=== PATIENT | male | born 1990 | race Caucasian/White ===

== ENCOUNTER 2021-03-19 07:03 | Emergency (ER) | payer OTHER ==
[2021-03-19 07:08] VITALS: TEMP 97.4
[2021-03-19] MEDS ORDERED: predniSONE 20 MG TAB PO STA (07:33)
[2021-03-19] MEDS ORDERED: KETOROLAC 15 MG/ML 1 ML VIAL IM STA (07:33)
--- NOTE | 2021-03-19 08:24 | XR ---
EXAM TYPE: LUMBAR SPINE X RAY SERIES COMPARISON: NONE HISTORY: Pain TECHNIQUE: 4 views are submitted. FINDINGS: Alignment is anatomic. The pedicles are intact. The transverse processes are intact. There is no s pondylolysis or spondylolisthesis. IMPRESSION: 1. No acute process.
[2021-03-19] MEDS ORDERED: HYDROmorphone 1 MG/ML 1 ML SYRINGE IM STA (08:38)
--- NOTE | 2021-03-19 08:51 | ED ---
Back Pain HPI - General Chief Complaint: Back Pain/Injury Stated Complaint: Back pain Source: patient Limitations: no limitations - History of Present Illness Initial Comments: 30-year-old male with no past buccal history presents emergency room with back pain. Patient states that he was working on a car 2 months ago and was in a bad position. Caused him to have significant sciatic pain for a couple of days. States the pain eventually went away on its own. The patient then woke up this morning with intense right-sided SI pain that went down into his right leg. He attempted to take some Motrin at home without relief. Additionally took a Naprosyn which states that it did help for a short period of time. He denies any weakness in his lower extremity's. No saddle anesthesia. No bowel or bl adder incontinence. No fevers. Denies IV drug use. He did have a fall 2 days ago where he fell on his tailbone however did not have this pain after the incident. Denies any additional injuries. No other alleviating, precipitating or modifying factors - Related Data Previous Rx's Medication Instructions Recorded HYDROcodone/APAP 5-325MG [[place] 1 tab PO Q4HR PRN 3 Days #18 tab 03/19/21 5-325] predniSONE [Deltasone] 20 mg PO BID #10 tab 03/19/21 Allergies Allergy/AdvReac Type Severity Reaction Status Date / Time No Known Allergies Allergy Verified 03/19/21 07:09 Review of Systems ROS Statement: Those systems with pertinent positive or pertinent negative responses have been documented in the HPI. ROS Other: All systems not noted in ROS Statement are negative. Past Medical History Additional Past Medical History / Comment(s): kidney stones History of Any Multi-Drug Resistant Organisms: None Reported Past Surgical History: Ear Surgery, Orthopedic Surgery Additional Past Surgical History / Comment(s): rt hand Past Psychological History: No Psychological Hx Reported Smoking Status: Current every day smoker Past Alcohol Use History: Occasional Past Drug Use History: Marijuana General Exam Limitations: no limitations Course Vital Signs 03/19/21 07:05 Temperature 97.4 F L Pulse Rate 82 Respiratory 16 Rate Blood Pressure 138/93 O2 Sat by Pulse 97 Oximetry Medical Decision Making - Medical Decision Making Upon arrival patient is placed in room 9. A thorough history and physical exam was performed. Patient is neurovascularly intact. I did complete an x-ray as the patient's fall 2 days ago which demonstrates no acute findings. Patient was given 60 mg of prednisone and 50 mg IM of Toradol. She is reevaluated and states that he has had some improvement however continues to have pain. He was given 1 mg of Dilaudid. Patient is reevaluated and has improvement in his symptoms. Patient will be discharged home ambulatory in stable condition. He is to follow up with his primary care doctor in 2-4 days. Instructed to rest and place warm compresses to the site. No heavy lifting or bending. He will be given prednisone 20 mg to be taken twice daily for 5 days. He is additionally given Eidson to take for pain control. Instructed to not take any additional NSAIDs or drink alcohol. Return to the emergency room for any worsening symptoms. Patient agreed to treatment plan and was discharged home in stable condition Disposition Clinical Impression: Back pain, Lumbar radiculopathy, Sciatic leg pain Disposition: HOME SELF-CARE Condition: Stable Instructions (If sedation given, give patient instructions): Lumbar Radiculopathy (ED) Additional Instructions: Please follow up with your PCP in 2-[address] warm compresses to the site. Rest. No heavy lifting or bending. Take the Eidson and prednisone as directed. Do not take extra Tylenol with the Eidson. Return to the ED for any new or worsening symptoms. Prescriptions: predniSONE [Deltasone] 20 mg PO BID #10 tab HYDROcodone/APAP 5-325MG [[place] 5-325] 1 tab PO Q4HR PRN 3 Days #18 tab PRN Reason: pain Is patient prescribed a controlled substance at d/c from ED?: Yes When asked, does pt state using other controlled substances?: No If prescribed controlled substance>3 days was MAPS reviewed?: Prescribed <3 Days If opioid is for acute pain is fill amount 7 days or less?: Yes If Rx opioid, was Start Talking consent form obtained?: Yes Referrals: None,Stated [Primary Care Provider] - 1-2 days Time of Disposition: 08:54
[2021-03-19 09:44] VITALS: BP 156/97; PULSE 61; RESP 18
== END 2021-03-19 09:40 | disposition home or self-care (01) ==
LOC: EC 07:03
DX: M54.41 Lumbago with sciatica, right side (principal); M54.16 Radiculopathy, lumbar region; F17.200 Nicotine dependence, unspecified, uncomplicated; F12.90 Cannabis use, unspecified, uncomplicated
CPT/HCPCS: 72110; 96372 ×2; 99283; J1170; J1885; J7512

== ENCOUNTER 2021-09-27 18:29 | Emergency (ER) | payer OTHER ==
[2021-09-27 20:13] VITALS: BP 155/103; PULSE 87; RESP 20; TEMP 98.7
[2021-09-27] MEDS ORDERED: DOXYCYCLINE 100 MG CAP PO STA (22:38)
--- NOTE | 2021-09-27 22:41 | ED ---
Extremity Problem HPI - General Chief complaint: Extremity Problem,Nontraumatic Stated complaint: Finger Infection Time Seen by Provider: 09/27/21 22:32 Source: patient, RN notes reviewed Mode of arrival: ambulatory Limitations: no limitations - History of Present Illness Initial comments: Patient presents with what appears to be infection left middle finger. Patient states that he sustained a puncture wound to the left middle finger several days ago and was seen at different facility. Patient was put on IV antibiotics and then subsequently was put on Augmentin which she states is irritating his stomach. Patient presents here for continued erythema and swelling to the finger despite the antibiotics. Patient has no tenderness into the hand. Is able to flex the finger without significant pain. Patient states that he believes there is a piece of fiberglass stuck in the wound on the flexor aspect of his left little finger. No headache, no fever or chills, no changes in vision or hearing, no sore throat or difficulty with speech, no neck pain, no chest pain or shortness of breath, no abdominal pain, no nausea or vomiting, no changes in urination or bowel movements, no numbness or tingling, , no skin rashes or lesions. - Related Data Previous Rx's Medication Instructions Recorded HYDROcodone/APAP 5-325MG [[place] 1 tab PO Q4HR PRN 3 Days #18 tab 03/19/21 5-325] predniSONE [Deltasone] 20 mg PO BID #10 tab 03/19/21 Doxycycline [Vibramycin] 100 mg PO BID 1 Days #20 each 09/27/21 Allergies Allergy/AdvReac Type Severity Reaction Status Date / Time No Known Allergies Allergy Verified 09/27/21 20:11 Review of Systems ROS Statement: Those systems with pertinent positive or pertinent negative responses have been documented in the HPI. ROS Other: All systems not noted in ROS Statement are negative. Past Medical History Past Medical History: No Reported History Additional Past Medical History / Comment(s): kidney stones History of Any Multi-Drug Resistant Organisms: None Reported Past Surgical History: Ear Surgery, Orthopedic Surgery Additional Past Surgical History / Comment(s): rt hand Past Psychological History: No Psychological Hx Reported Smoking Status: Current every day smoker Past Alcohol Use History: Occasional Past Drug Use History: Marijuana General Exam Limitations: no limitations General appearance: alert, in no apparent distress Head exam: Present: atraumatic, normocephalic, normal inspection Eye exam: Present: normal appearance, EOMI Neck exam: Present: normal inspection, full ROM Respiratory exam: Present: normal lung sounds bilaterally. Absent: respiratory distress, wheezes, rales, rhonchi, stridor Cardiovascular Exam: Present: regular rate, normal rhythm, normal heart sounds. Absent: systolic murmur, diastolic murmur, rubs, gallop, clicks GI/Abdominal exam: Present: soft. Absent: tenderness Extremities exam: Present: full ROM, tenderness (Minimal tenderness overlying the erythematous area to the left middle finger. There is no significant tenderness in the distribution of the flexor tendon sheath. No definitive for eign body. Capillary refill less than 2 seconds. Remainder of the hand is unremarkable.), normal capillary refill, other (No evidence of flexor tenosynovitis). Absent: normal inspection Back exam: Present: normal inspection Neurological exam: Present: alert, oriented X3, CN II-XII intact, normal gait. Absent: motor sensory deficit Psychiatric exam: Present: normal affect, normal mood Skin exam: Present: warm, dry. Absent: cyanosis, diaphoretic, urticaria, vesicles Course Vital Signs 09/27/21 20:11 Temperature 98.7 F Pulse Rate 87 Respiratory 20 Rate Blood Pressure 155/103 O2 Sat by Pulse 96 Oximetry Medical Decision Making - Medical Decision Making Patient presents with what is likely resolving cellulitis affecting the left middle finger and left hand. However he is concerned about a foreign body which was unable to be visualized here. Patient was given follow-up with orthopedics and hand surgery. Patient had no evidence of flexor tenosynovitis or systemic illness. The case was discussed in detail with ED attending physician. Presentation, findings, treatment plan discussed in detail. Patient's antibiotics will be continued until follow-up with the hand surgeon. Patient was told to return to the ER for any signs or symptoms worsen. Told to return immediately if any other problems arise. All questions answered. Treatment plan discussed. Patient in agreement Every effort has been made to ensure accuracy of this dictation. However, due to the limitations of electronic medical records and dictation devices, errors in charting still occur. Patient was told to follow-up with the hand surgeon in the morning without fail. Disposition Clinical Impression: Foreign body of left middle finger, Cellulitis of left hand Disposition: HOME SELF-CARE Condition: Good Instructions (If sedation given, give patient instructions): Soft Tissue Foreign Body (ED), Cellulitis (ED) Additional Instructions: Elevation, warm compresses. Call the hand surgeon's office tomorrow morning at 8 AM. Extremities no thumb that you were seen in the ER need to be seen on the same day. Return to the ER immediately if any symptoms worsen, new symptoms arise, or any other problems develop. Prescriptions: Doxycycline [Vibramycin] 100 mg PO BID 1 Days #20 each Is patient prescribed a controlled substance at d/c from ED?: No Referrals: Liat Porter DO [Doctor of Osteopathic Medicine] - 1-2 days Time of Disposition: 22:40
== END 2021-09-27 22:53 | disposition home or self-care (01) ==
LOC: EC 18:29
DX: S60.453A Superficial foreign body of left middle finger, initial encounter (principal); L03.012 Cellulitis of left finger; L03.114 Cellulitis of left upper limb; F17.200 Nicotine dependence, unspecified, uncomplicated; F12.90 Cannabis use, unspecified, uncomplicated; W45.8XXA Other foreign body or object entering through skin, initial encounter
CPT/HCPCS: 99283

== ENCOUNTER 2022-06-04 06:04 | Emergency (ER) | payer BC, OTHER ==
[2022-06-04 06:14] VITALS: TEMP 97.5
[2022-06-04] MEDS ORDERED: KETOROLAC 15 MG/ML 1 ML VIAL IVP STA (06:28)
[2022-06-04 06:38] LABS: Basophils % (A) 1 %; Eosinophils # (A) 0.2 k/uL (0-0.7); Eosinophils % (A) 3 %; HCT 43.8 % (39.0-53.0); Lymphocytes # (A) 2.2 k/uL (1.0-4.8); Lymphocytes % (A) 34 %; MCH 30.9 pg (25.0-35.0); MCHC 34.2 g/dL (31.0-37.0); MCV 90.4 fL (80.0-100.0); Mean Platelet Volume 7.6; Monocytes # (A) 0.4 k/uL (0-1.0); Monocytes % (A) 6 %; Neutrophils # (A) 3.5 k/uL (1.3-7.7); Neutrophils % (A) 55 %; Platelet Count 310 k/uL (150-450); RBC 4.84 m/uL (4.30-5.90); RDW 12.8 % (11.5-15.5); WBC 6.4 k/uL (3.8-10.6)
[2022-06-04 06:50] LABS: INR 0.9 (<1.2); Partial Thromboplastin Time 26.3 sec (22.0-30.0); Prothrombin Time 9.9 sec (9.0-12.0)
[2022-06-04 06:56] LABS: ALT 41 U/L (4-49); AST 40 U/L (17-59); African American GFR (CKD) >90 (>60 ml/min/1.73 sqM); Albumin 4.9 g/dL (3.5-5.0); Alkaline Phosphatase 115 U/L (38-126); Anion Gap 11 mmol/L; Blood Urea Nitrogen 14 mg/dL (9-20); Calcium 9.2 mg/dL (8.4-10.2); Carbon Dioxide 23 mmol/L (22-30); Chloride 106 mmol/L (98-107); Glucose 109 mg/dL (74-99); Non-African American GFR(CKD) >90 (>60 ml/min/1.73 sqM); Potassium 4.6 mmol/L (3.5-5.1); Sodium 140 mmol/L (137-145); Total Bilirubin 0.5 mg/dL (0.2-1.3); Total Protein 7.7 g/dL (6.3-8.2)
--- NOTE | 2022-06-04 06:58 | XR ---
EXAMINATION TYPE: XR chest 2V DATE OF EXAM: 06/04/2022 COMPARISON: NONE HISTORY: Chest pain. TECHNIQUE: Frontal and lateral views of the chest are obtained. FINDINGS: Low lung volumes are present. Mild peripheral left basilar linear atelectasis. Right lung is clear. The cardiac silhouette size is within normal limits. The osseous structures are intact. IMPRESSION: Low Lung volumes with mild left basilar linear atelectasis.
--- NOTE | 2022-06-04 07:43 | ED ---
Chest Pain HPI - General Chief Complaint: Chest Pain Stated Complaint: Chest pain Time Seen by Provider: 06/04/22 06:15 Source: patient, RN notes reviewed Mode of arrival: wheelchair Limitations: no limitations - History of Present Illness Initial Comments: 31-year-old male presents emergency Department chief complaint of chest pain. He states his been on and off issue for a while but states that it started getting worse over night into this morning. Patient states he has centralized chest pain. He states it hurts when he takes a deep inspiration. Patient states nothing really makes it feel better but is worse with movement. Patient denies any fevers cough or cold like symptoms he is currently taking omeprazole for reflux. - Related Data Previous Rx's Medication Instructions Recorded HYDROcodone/APAP 5-325MG [[place] 1 tab PO Q4HR PRN 3 Days #18 tab 03/19/21 5-325] predniSONE [Deltasone] 20 mg PO BID #10 tab 03/19/21 Doxycycline [Vibramycin] 100 mg PO BID 1 Days #20 each 09/27/21 Ibuprofen [Motrin] 600 mg PO Q8HR PRN #20 tab 06/04/22 Allergies Allergy/AdvReac Type Severity Reaction Status Date / Time No Known Allergies Allergy Verified 06/04/22 06:14 Review of Systems ROS Statement: Those systems with pertinent positive or pertinent negative responses have been documented in the HPI. ROS Other: All systems not noted in ROS Statement are negative. EKG Findings - EKG Comments: EKG Findings:: EKG performed at 6:19 sinus rhythm rate of 84 MD 135 QRS 88 QT/QTC 362/403 - EKG Results: EKG: interpreted by FAISAL Past Medical History Past Medical History: Hypertension Additional Past Medical History / Comment(s): kidney stones History of Any Multi-Drug Resistant Organisms: None Reported Past Surgical History: Ear Surgery, Orthopedic Surgery Additional Past Surgical History / Comment(s): rt hand Past Psychological History: No Psychological Hx Reported Smoking Status: Current every day smoker Past Alcohol Use History: Occasional Past Drug Use History: Marijuana General Exam Limitations: no limitations General appearance: alert, in no apparent distress Head exam: Present: atraumatic, normocephalic, normal inspection Eye exam: Present: normal appearance, PERRL, EOMI. Absent: scleral icterus, conjunctival injection, periorbital swelling ENT exam: Present: normal exam, mucous membranes moist Neck exam: Present: normal inspection. Absent: tenderness, meningismus, lymphadenopathy Respiratory exam: Present: normal lung sounds bilaterally, chest wall tenderness. Absent: respiratory distress, wheezes, rales, rhonchi, stridor Cardiovascular Exam: Present: regular rate, normal rhythm, normal heart sounds. Absent: systolic murmur, diastolic murmur, rubs, gallop, clicks GI/Abdominal exam: Present: soft, normal bowel sounds. Absent: distended, tenderness, guarding, rebound, rigid Course Vital Signs 06/04/22 06/04/22 06:11 08:37 Temperature 97.5 F L Pulse Rate 86 73 Respiratory 18 16 Rate Blood Pressure 149/105 145/91 O2 Sat by Pulse 95 97 Oximetry Chest Pain MDM - MDM 31-year-old male presented from for chest pain. Labs do not reveal any significant findings negative troponin, negative d-dimer. Patient has pleuritic pain consistent with pleurisy. X-ray interpreted shows mild atelectasis no other acute processes. Patient will be discharged in stable condition with close follow-up return parameters were discussed Disposition Clinical Impression: Chest pain, Anterior pleuritic pain, Pleurisy Disposition: HOME SELF-CARE Condition: Stable Instructions (If sedation given, give patient instructions): Chest Pain (ED), Pleurisy (ED) Additional Instructions: Please return to the Emergency Department if symptoms worsen or any other concerns. Prescriptions: Ibuprofen [Motrin] 600 mg PO Q8HR PRN #20 tab PRN Reason: Pain Is patient prescribed a controlled substance at d/c from ED?: No Referrals: None,Stated [Primary Care Provider] - 1-2 days Time of Disposition: 08:14
[2022-06-04] MEDS ORDERED: ACET/COD 300 MG/30 MG STARTER PACK 6 TAB BTL PO STA (08:14)
[2022-06-04 08:38] VITALS: BP 145/91; PULSE 73; RESP 16
== END 2022-06-04 08:38 | disposition home or self-care (01) ==
LOC: EC 06:04
DX: R09.1 Pleurisy (principal); I10 Essential (primary) hypertension; F12.90 Cannabis use, unspecified, uncomplicated; F17.200 Nicotine dependence, unspecified, uncomplicated
CPT/HCPCS: 36415; 93005; 85379; 80053; 83735; 84484; 85025; 85610; 85730; 71046; 99285; 96374; J1885

== ENCOUNTER 2023-04-10 08:18 | Emergency (ER) | payer BC, OTHER ==
[2023-04-10 08:29] VITALS: RESP 16
[2023-04-10] MEDS ORDERED: HYDROmorphone 0.5 MG/0.5 ML SYRINGE IVP STA (08:37)
[2023-04-10] MEDS ORDERED: KETOROLAC 15 MG/ML 1 ML VIAL IVP STA (08:37)
[2023-04-10] MEDS ORDERED: ONDANSETRON 4 MG/2 ML VIAL IVP STA (08:37)
[2023-04-10] MEDS ORDERED: ORPHENADRINE 30 MG/ML 2 ML VIAL IVP STA (08:37)
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
--- NOTE | 2023-04-10 09:35 | CT ---
EXAMINATION TYPE: CT lumbar spine wo con DATE OF EXAM: 04/10/2023 9:28 AM COMPARISON: None HISTORY: lower back pain, sciatic pain down both legs. CT DLP: 1137.6 mGycm Automated exposure control for dose reduction was used. Unenhanced CT of the lumbar spine was performed. Bone and soft tissue window settings are submitted as well as coronal and sagittal reconstructions. L1-L2: Normal disc space height. No disc herniation protrusion or central stenosis. No facet joint arthropathy. No evidence for foraminal encroachment. L2-L3: Normal disc space height. No disc herniation protrusion or central stenosis. No facet joint arthropathy. No evidence for foraminal encroachment. L3-L4: Normal disc space height. No disc herniation protrusion or central stenosis. No facet joint arthropathy. No evidence for foraminal encroachment. L4-L5: Normal disc space height. No disc herniation protrusion or central stenosis. No facet joint arthropathy. No evidence for foraminal encroachment. L5-S1: Mild degenerative disc space narrowing. Broad-based posterocentral and to the right disc herni ation which results in right lateral recess stenosis and right foraminal encroachment. There may be i ntermittent left lateral recess stenosis as well. Mild left foraminal encroachment noted. Subchondral sclerosis and probable Schmorl node inferior L5 endplate. Bilateral nonobstructing nephrolithiasis. No evidence for fracture or malalignment. IMPRESSION: 1. Subligamentous disc herniation paracentrally into the right at L5-S1 with right lateral recess anali nosis and right foraminal encroachment. There may be intermittent left lateral recess stenosis as wel l.
[2023-04-10 09:42] VITALS: TEMP 97.4
[2023-04-10] MEDS ORDERED: methylPREDNISolone SOD SUCCI 125 MG/2 ML VIAL IV STA (10:14)
[2023-04-10] MEDS ORDERED: HYDROmorphone 1 MG/ML 1 ML SYRINGE IVP STA (10:14)
[2023-04-10 11:19] VITALS: BP 129/83; PULSE 59
== END 2023-04-10 11:32 | disposition home or self-care (01) ==
LOC: EC 08:18
DX: M51.26 Other intervertebral disc displacement, lumbar region (principal); I10 Essential (primary) hypertension; F17.200 Nicotine dependence, unspecified, uncomplicated; F12.90 Cannabis use, unspecified, uncomplicated
CPT/HCPCS: 72131; 99284; 96374; 96375 ×4; 96376; J2360; J2930; J2405; J1170 ×2; J1885

== ENCOUNTER → 2023-05-05 | Outpatient (CLI) | payer OTHER ==
--- NOTE | 2023-05-06 12:58 | MR ---
EXAMINATION TYPE: MR lumbar spine wo con DATE OF EXAM: 05/05/2023 7:44 PM CLINICAL INDICATION:Male, 32 years old with history of M54.59,M43.17,M51.17,M51.37,E66.9, Low back pa in into legs COMPARISON: None TECHNIQUE: Multi planar, multi sequence imaging was performed utilizing: T1-weighted, T2-weighted, a nd turbo inversion recovery imaging of the lumbar spine. IV Contrast: (None if empty) FINDINGS: Alignment: The lumbar vertebral bodies have preserved heights and alignment. Cord: The conus medullaris and the distal spinal cord appear unremarkable with regards to their signa l intensity and morphology. Bones/Discs: Disc degeneration changes worse at L5-S1 with disc space narrowing and osteophyte format ion. There is Modic end plate changes at this level and Schmorl's nodes. No abnormal bony edema on in version recovery sequences. T12-L1: No evidence of significant spinal canal stenosis or neural foraminal stenosis. L1-L2: No evidence of significant spinal canal stenosis or neural foraminal stenosis. L2-L3: No evidence of significant spinal canal stenosis or neural foraminal stenosis. L3-L4: No evidence of significant spinal canal stenosis or neural foraminal stenosis. L4-L5: No evidence of significant spinal canal stenosis or neural foraminal stenosis. L5-S1: Right central/subarticular disc protrusion which effaces the forming right nerve (exiting righ t S1-S2.) Mild spinal canal and mild neural foraminal stenosis. No significant spinal canal or neural foraminal stenosis in the remainder of the visualized levels.' IMPRESSION: 1. L5-S1 disc protrusion in the central/right articular which abuts the exiting S1-S2 nerves/forming at the level of L5-S1. No evidence for significant spinal canal or neural foraminal stenosis. 2. Mild degeneration changes worse at L5-S1.
== END | disposition home or self-care (01) ==
LOC: RADMRIMAIN 18:15
PROVIDERS: ATTEND Orthopaedic Surgery Orthopaedic Surgery of the Spine
DX: M43.17 Spondylolisthesis, lumbosacral region (principal); M51.17 Intervertebral disc disorders with radiculopathy, lumbosacral region; E66.9 Obesity, unspecified
CPT/HCPCS: 72148

== ENCOUNTER 2023-06-09 11:47 | Emergency (ER) | payer OTHER ==
--- NOTE | 2023-06-09 12:10 | ED ---
Abdominal Pain HPI - General Source: patient, RN notes reviewed Mode of arrival: ambulatory Limitations: no limitations <Nehemias Wallace - Last Filed: 06/09/23 12:09> <Richmond Carcamo - Last Filed: 06/09/23 15:25> - General Chief Complaint: Abdominal Pain Stated Complaint: abd pain, diarhea, lightheaded Time Seen by Provider: 06/09/23 12:09 - History of Present Illness Initial Comments: 32-year-old male presents emergency Department chief complaint of abdominal pain. Patient states that he did have a history of diverticulitis with colon resection in January by Dr. Verdin. Patient states that this pain seems very similar in nature. Patient states pain is on the right side at this time. He states felt lightheaded, generalized not feeling well. Patient denies any reports of fever he has had significant diarrhea (Nehemias Wallace) - Related Data Home Medications Medication Instructions Recorded Confirmed Sertraline [Zoloft] 100 mg PO HS 06/09/23 06/09/23 Allergies Allergy/AdvReac Type Severity Reaction Status Date / Time No Known Allergies Allergy Verified 06/09/23 15:12 Review of Systems ROS Other: All systems not noted in ROS Statement are negative. <Nehemias Wallace - Last Filed: 06/09/23 12:09> ROS Other: All systems not noted in ROS Statement are negative. <Richmond Carcamo - Last Filed: 06/09/23 15:25> ROS Statement: Those systems with pertinent positive or pertinent negative responses have been documented in the HPI. Past Medical History Past Medical History: Hypertension Additional Past Medical History / Comment(s): kidney stones, diverticulosis History of Any Multi-Drug Resistant Organisms: None Reported Past Surgical History: Bowel Resection, Ear Surgery, Orthopedic Surgery Additional Past Surgical History / Comment(s): rt hand Past Psychological History: No Psychological Hx Reported Smoking Status: Former smoker Past Alcohol Use History: Occasional Past Drug Use History: Marijuana <Nehemias Wallace - Last Filed: 06/09/23 12:09> General Exam Limitations: no limitations <Nehemias Wallace - Last Filed: 06/09/23 12:09> General appearance: alert, in no apparent distress Head exam: Present: atraumatic, normocephalic Eye exam: Present: normal appearance, PERRL ENT exam: Present: mucous membranes moist Respiratory exam: Present: normal lung sounds bilaterally. Absent: respiratory distress, wheezes Cardiovascular Exam: Present: regular rate, normal rhythm GI/Abdominal exam: Present: soft, tenderness (Generalized). Absent: distended, guarding, rebound Extremities exam: Present: normal inspection, normal capillary refill Neurological exam: Present: alert, oriented X3 Psychiatric exam: Present: normal affect, normal mood Skin exam: Present: warm, dry, intact. Absent: cyanosis, diaphoretic <Richmond Carcamo - Last Filed: 06/09/23 15:25> - General Exam Comments Initial Comments: Visual Physical Exam Vital signs reviewed General: Well-appearing, nontoxic, no acute distress. Head: Normocephalic, atraumatic Eyes: PERRLA, EOMI ENT: Airway patent Chest: Nonlabored breathing Skin: No visual rash, normal skin tone Neuro: Alert and oriented 3 Musculoskeletal: No gross abnormalities (Nehemias Wallace) Course Vital Signs 06/09/23 06/09/23 11:59 15:16 Temperature 98.5 F Pulse Rate 82 Respiratory 16 18 Rate Blood Pressure 135/91 141/91 O2 Sat by Pulse 96 Oximetry Medical Decision Making <Nehemias Wallace - Last Filed: 06/09/23 12:09> - Lab Data Result diagrams: 06/09/23 14:57 06/09/23 14:01 <Richmond Carcamo - Last Filed: 06/09/23 15:25> - Medical Decision Making I completed the quick note portion of this chart signed Nehemias Wallace PA-C (Nehemias Wallace) Was pt. sent in by a medical professional or institution ([facility], EMPLOYEE WELFARE MANAGER, urgent care, hospital, or penitentiary...) When possible be specific @ -No Did you speak to anyone other than the patient for history (EMS, parent, family, police, friend...)? What history was obtained from this source @ -No Did you review nursing and triage notes (agree or disagree)? Why? @ -I reviewed and agree with nursing and triage notes Were old charts reviewed (outside hosp., previous admission, EMS record, old EKG, old radiological studies, urgent care reports/EKG's, penitentiary records)? Report findings @ -No old charts were reviewed Differential Diagnosis (chest pain, altered mental status, abdominal pain women, abdominal pain men, vaginal bleeding, weakness, fever, dyspnea, syncope, headache, dizziness, GI bleed, back pain, seizure, CVA, palpatations, mental health, musculoskeletal)? @ -[Differential Abdominal Pain Men: Appendicitis, cholecystitis, diverticulosis, ischemic bowel, pancreatitis, hepatitis, UTI, gastroenteritis, AAA, incarcerated hernia, bowel obstruction, constipation, inflammatory bowel, hepatitis, peptic ulcer disease, splenic infarction, perforated viscus, testicular torsion, this is not meant to be an all-inclusive list EKG interpreted by me (3pts min.). @ -As above X-rays interpreted by me (1pt min.). @ -None done CT interpreted by me (1pt min.). @CT negative for acute process U/S interpreted by me (1pt. min.). @ -None done What testing was considered but not performed or refused? (CT, X-rays, U/S, labs)? Why? @ -None What meds were considered but not given or refused? Why? @ -None Did you discuss the management of the patient with other professionals (professionals i.e. , PA, EMPLOYEE WELFARE MANAGER, lab, RT, psych nurse, child welfare social worker, car seat maker, teacher, navigation officer, medical case manager)? Give summary @ -No Was smoking cessation discussed for >3mins.? @ -No Was critical care preformed (if so, how long)? @ -No Were there social determinants of health that impacted care today? How? (Homelessness, low income, unemployed, alcoholism, drug addiction, transportation, low edu. Level, literacy, decrease access to med. care, nursing home, rehab)? @ -No Was there de-escalation of care discussed even if they declined (Discuss DNR or withdrawal of care, Hospice)? DNR status @ -No What co-morbidities impacted this encounter? (DM, HTN, Smoking, COPD, CAD, Cancer, CVA, ARF, Chemo, Hep., AIDS, mental health diagnosis, sleep apnea, morbid obesity)? @ -[History of diverticulosis status post resection Was patient admitted / discharged? Hospital course, mention meds given and route, prescriptions, significant lab abnormalities, going to OR and other pertinent info. @ -[32 -year-old male with generalized abdominal pain, diarrhea. Normal CBC, normal electrolytes. CT negative for acute findings. Undiagnosed new problem with uncertain prognosis? @ -No Drug Therapy requiring intensive monitoring for toxicity (Heparin, Nitro, Insu luiza, Cardizem)? @ -No Were any procedures done? @ -No Diagnosis/symptom? @ -[Abdominal pain, diarrhea Acute, or Chronic, or Acute on Chronic? @ -[Acute Uncomplicated (without systemic symptoms) or Complicated (systemic symptoms)? @ -default Side effects of treatment? @ -No Exacerbation, Progression, or Severe Exacerbation? @ -No Poses a threat to life or bodily function? How? (Chest pain, [place], [place], pneumonia, PE, COPD, DKA, ARF, appy, cholecystitis, CVA, Diverticulitis, Homicidal, Suicidal, threat to staff... and all critical care pts) @Low risk (Richmond Carcamo) - Lab Data Lab Results 06/09/23 06/09/23 06/09/23 Range/Units 14:01 14:01 14:57 WBC 4.7 (3.8-10.6) k/uL RBC 4.73 (4.30-5.90) m/uL Hgb 14.4 (13.0-17.5) gm/dL Hct 41.9 (39.0-53.0) % MCV 88.6 (80.0-100.0) fL MCH 30.3 (25.0-35.0) pg MCHC 34.2 (31.0-37.0) g/dL RDW 13.7 (11.5-15.5) % Plt Count 274 (150-450) k/uL MPV 7.0 Neutrophils % 54 % Lymphocytes % 30 % Monocytes % 8 % Eosinophils % 6 % Basophils % 0 % Neutrophils # 2.6 (1.3-7.7) k/uL Lymphocytes # 1.4 (1.0-4.8) k/uL Monocytes # 0.4 (0-1.0) k/uL Eosinophils # 0.3 (0-0.7) k/uL Basophils # 0.0 (0-0.2) k/uL Sodium 137 (137-145) mmol/L Potassium 4.1 (3.5-5.1) mmol/L Chloride 103 (98-107) mmol/L Carbon Dioxide 17 L (22-30) mmol/L Anion Gap 17 mmol/L BUN 11 (9-20) mg/dL Creatinine 0.56 L (0.66-1.25) mg/dL Est GFR (CKD-EPI)AfAm >90 (>60 ml/min/1.73 sqM) Est GFR (CKD-EPI)NonAf >90 (>60 ml/min/1.73 sqM) Glucose 103 H (74-99) mg/dL Plasma Lactic Acid Lucio 0.9 (0.7-2.0) mmol/L Calcium 9.8 (8.4-10.2) mg/dL Total Bilirubin 0.7 (0.2-1.3) mg/dL AST 25 (17-59) U/L ALT 21 (4-49) U/L Alkaline Phosphatase 113 (38-126) U/L Total Protein 8.4 H (6.3-8.2) g/dL Albumin 5.1 H (3.5-5.0) g/dL Lipase 91 (23-300) U/L Disposition <Nehemias Wallace - Last Filed: 06/09/23 12:09> Is patient prescribed a controlled substance at d/c from ED?: No Time of Disposition: 15:25 <Richmond Carcamo - Last Filed: 06/09/23 15:25> Clinical Impression: Abdominal pain Disposition: HOME SELF-CARE Condition: Fair Instructions (If sedation given, give patient instructions): Abdominal Pain (ED) Referrals: Samia Cox DO [Primary Care Provider] - 1-2 days
[2023-06-09 12:24] VITALS: PULSE 82; TEMP 98.5
[2023-06-09 14:25] LABS: ALT 21 U/L (4-49); AST 25 U/L (17-59); African American GFR (CKD) >90 (>60 ml/min/1.73 sqM); Albumin 5.1 g/dL (3.5-5.0); Alkaline Phosphatase 113 U/L (38-126); Anion Gap 17 mmol/L; Blood Urea Nitrogen 11 mg/dL (9-20); Calcium 9.8 mg/dL (8.4-10.2); Carbon Dioxide 17 mmol/L (22-30); Chloride 103 mmol/L (98-107); Glucose 103 mg/dL (74-99); Lipase 91 U/L (23-300); Non-African American GFR(CKD) >90 (>60 ml/min/1.73 sqM); Potassium 4.1 mmol/L (3.5-5.1); Sodium 137 mmol/L (137-145); Total Bilirubin 0.7 mg/dL (0.2-1.3); Total Protein 8.4 g/dL (6.3-8.2)
[2023-06-09] MEDS ORDERED: MORPHINE SULFATE 4 MG/ML SYRINGE IVP STA (14:41)
--- NOTE | 2023-06-09 14:50 | CT ---
EXAMINATION TYPE: CT abdomen pelvis w con DATE OF EXAM: 06/09/2023 COMPARISON: None INDICATION: abdominal pain, history of diverticulitis, hx of bowel resection DLP: 1175.4 mGycm, Automated exposure control for dose reduction was used. CONTRAST: 100 mL of Isovue 300. Study performed with Oral Contrast TECHNIQUE: Axial images were obtained from above the diaphragm to the pubic rami in the axial plane a t 5 mm thick sections. Reconstructed images are reviewed on the computer in the coronal plane. FINDINGS: Limited CT sections are obtained the lung bases. The lung bases are clear. CT ABDOMEN: Liver: Normal Spleen: Normal Pancreas: Normal Adrenal glands: The adrenal glands are normal. Gallbladder: Normal Kidneys: No masses are evident. No hydronephrosis is present. No cysts are present. There is a 0.3 cm calcification inferior pole left kidney. There are posterior-inferior pole renal calcification me asuring 0.4 and 0.7 cm left kidney. No obstructing renal stones evident within either kidney. Delayed images appear unremarkable. Aorta: Normal Inferior vena cava: Normal. CT PELVIS: Loops of bowel within the abdomen and pelvis are normal. Patient's bowel resection with anastomosis w ithin the left hemipelvis sigmoid colon appears widely patent There are loops of bowel which are i ncompletely distended or lack oral contrast limiting their evaluation. Appendix: Normal as visualized. Urinary bladder: Normal. Genitourinary structures: Prostate appears unremarkable. Osseous structures: No suspicious lytic or sclerotic lesions. IMPRESSION: 1. Nonobstructing left renal stones. 2. No acute diverticulitis.
[2023-06-09 15:00] LABS: Basophils % (A) 0 %; Eosinophils # (A) 0.3 k/uL (0-0.7); Eosinophils % (A) 6 %; HCT 41.9 % (39.0-53.0); HGB 14.4 gm/dL (13.0-17.5); Lymphocytes # (A) 1.4 k/uL (1.0-4.8); Lymphocytes % (A) 30 %; MCH 30.3 pg (25.0-35.0); MCHC 34.2 g/dL (31.0-37.0); MCV 88.6 fL (80.0-100.0); Monocytes # (A) 0.4 k/uL (0-1.0); Monocytes % (A) 8 %; Neutrophils # (A) 2.6 k/uL (1.3-7.7); Neutrophils % (A) 54 %; Platelet Count 274 k/uL (150-450); RBC 4.73 m/uL (4.30-5.90); RDW 13.7 % (11.5-15.5); WBC 4.7 k/uL (3.8-10.6)
[2023-06-09 15:36] VITALS: BP 141/91; RESP 18
== END 2023-06-09 15:45 | disposition home or self-care (01) ==
LOC: EC 11:47
DX: N20.0 Calculus of kidney (principal); I10 Essential (primary) hypertension; F12.90 Cannabis use, unspecified, uncomplicated; Z87.891 Personal history of nicotine dependence
CPT/HCPCS: 36415; 80053; 83605; 83690; 85025; 74177; 99284; 96374; J2270; Q9967